=== PATIENT | female | born 1935 | race Caucasian/White ===

== ENCOUNTER 2021-05-08 19:59 | Inpatient (IN) | payer MEDICARE, MEDICAID ==
[~2021-05-08] VITALS: Ht 165.1 cm; Wt 65.8 kg
[2021-05-08 21:16] LABS: HEMOGLOBIN 14.5 gm/dl (12.3-15.3); RED BLOOD COUNT 4.83 M/UL (4.00-5.10); WHITE BLOOD COUNT 7.4 K/UL (4.5-11.0)
--- NOTE | 2021-05-09 01:01 | NUR ---
PT STATES THAT SHE DOES NOT KNOW WHAT MEDICATIONS SHE TAKES AT HOME. DAYSHIFT RN WILL BE MADE AWARE SO THAT MEDICATIONS CAN BE OBTAINED IN AM 05/09/21.
[2021-05-09] MEDS ORDERED: PROAIR HFA8.5 GM INH (10:57)
[2021-05-09] MEDS ORDERED: ZITHROMAX250 MG PO (11:00)
[2021-05-09] MEDS ORDERED: AMLODIPINE BESYL5 MG PO (11:01)
[2021-05-09] MEDS ORDERED: METHYLPREDNISOLO4 M1 PO (11:01)
[2021-05-09] MEDS ORDERED: METOPROLOL SUCC50 MG PO (11:01)
[2021-05-09] MEDS ORDERED: LOSARTAN POTASS50 MG PO (11:02)
[2021-05-09] MEDS ORDERED: LEVOTHYROXINE25 MCG PO (11:02)
[2021-05-09] MEDS ORDERED: HYDROCODON-ACE1 EAC2 PO (11:02)
[2021-05-09] MEDS ORDERED: ATORVASTATIN CA10 MG PO (11:02)
[2021-05-09] MEDS ORDERED: VITAMIN D325 MC6 PO (11:03)
[2021-05-10 03:09] LABS: HEMOGLOBIN 12.9 gm/dl (12.3-15.3); RED BLOOD COUNT 4.37 M/UL (4.00-5.10); WHITE BLOOD COUNT 5.6 K/UL (4.5-11.0)
[2021-05-10 03:36] LABS: BUN/CREATININE RATIO 17 (0-10)
[2021-05-10] MEDS ORDERED: LOVENOX40 MG/0.4 SQ (16:08)
[2021-05-10] MEDS ORDERED: HYDROCODON-ACE1 EAC6 PO (16:08)
[2021-05-10] MEDS ORDERED: ZOFRAN 4 MG TAB4 MG PO (16:08)
[2021-05-11 06:15] LABS: HEMOGLOBIN 12.4 gm/dl (12.3-15.3); RED BLOOD COUNT 4.25 M/UL (4.00-5.10); WHITE BLOOD COUNT 5.5 K/UL (4.5-11.0)
[2021-05-11 06:37] LABS: BUN/CREATININE RATIO 18 (0-10)
[2021-05-12 04:10] LABS: RED BLOOD COUNT 4.33 M/UL (4.00-5.10); WHITE BLOOD COUNT 9.6 K/UL (4.5-11.0)
[2021-05-12 04:58] LABS: BUN/CREATININE RATIO 22 (0-10)
[2021-05-12] MEDS ORDERED: ASPIRIN EC81 MG PO (11:41)
== END 2021-05-12 13:40 | disposition home health service (06) | DRG 480 ==
LOC: ER1 19:59 → M/S 22:27 → CDU 22:27 → M/S 05-09 00:40
PROVIDERS: Nurse Practitioner; Orthopaedic Surgery; ADMIT Internal Medicine
PROC: 8E0ZXY6 Isolation (ICD-10-PCS; principal; 2021-05-08)
PROC: 0QS604Z Reposition Right Upper Femur with Internal Fixation Device, Open Approach (ICD-10-PCS; 2021-05-08)
PROC: 3E03329 Introduction of Other Anti-infective into Peripheral Vein, Percutaneous Approach (ICD-10-PCS; 2021-05-08)
PROC: 3E0333Z Introduction of Anti-inflammatory into Peripheral Vein, Percutaneous Approach (ICD-10-PCS; 2021-05-08)
DX: S72.031A Displaced midcervical fracture of right femur, initial encounter for closed fracture (principal); U07.1 COVID-19; J12.82 Pneumonia due to coronavirus disease 2019; G93.41 Metabolic encephalopathy; W01.0XXA Fall on same level from slipping, tripping and stumbling without subsequent striking against object, initial encounter; E03.9 Hypothyroidism, unspecified; M81.0 Age-related osteoporosis without current pathological fracture; R91.8 Other nonspecific abnormal finding of lung field; E78.5 Hyperlipidemia, unspecified; F17.200 Nicotine dependence, unspecified, uncomplicated; I10 Essential (primary) hypertension; Z90.49 Acquired absence of other specified parts of digestive tract; Z90.10 Acquired absence of unspecified breast and nipple; Z85.3 Personal history of malignant neoplasm of breast; Z90.79 Acquired absence of other genital organ(s); Z82.49 Family history of ischemic heart disease and other diseases of the circulatory system; Z92.21 Personal history of antineoplastic chemotherapy; Z79.82 Long term (current) use of aspirin; Z79.899 Other long term (current) drug therapy
CPT/HCPCS: ECHO; 36415; 71045; 73502; 73562; 73610; 76000; 80048; 80053; 82550; 82553; 83874; 84484; 85025; 85027; 86140; 86850; 86900; 86901; 86920; 93005; 93306; 97110; 97116; 97162; 97167; 97530; 99284; C1713; J0690; J1100; J1650; J2001; J2405; J2704; J2795; J7120; Q9967; U0002